=== PATIENT | male | born 1995 | race Caucasian/White ===

== ENCOUNTER 2020-02-03 05:52 | Emergency (ER) | payer SELFPAY ==
[2020-02-03 06:01] VITALS: BP 149/93; PULSE 78; RESP 16; TEMP 36.6; O2SAT 97; BMI 39.3
--- NOTE | 2020-02-03 06:23 | ED_ITS ---
HPI - Arrhythmia/Palpitations General: Chief Complaint: Arrhythmia/Palpitations Stated Complaint: irregular heartbeat Time Seen by Provider: 02/03/20 06:01 History of Present Illness: HPI narrative: 24-year-old coming in complaining of palpitations at around 1 AM this morning. He states he had a brief episode of slight chest discomfort went to bed and it resolved on its own. He denies any recent drug or alcohol use any energy drinks or any other kind of stimulants or decongestants. He did a little bit of chest discomfort which is very fleeting.Patient does not have any family history of coronary artery disease. He has no known history of any significant arrhythmias in the past. MD complaint: rapid heart beat and palpitations Onset (ago): hour(s) Time: 01:00 Duration: intermittent and now resolved Severity: mild Context: occurred during rest Arrhythmia history: other Associated symptoms: Reports no associated symptoms; Deny cough, diaphoresis, muscle cramps, nausea, pre-syncope, short of breath, syncope or vomiting Review of Systems Const: Denies: diaphoresis ENMT: Denies: throat pain, ear or mastoid pain, nasal discharge or nasal congestion Card: Reports: palpitations; Denies: lightheadedness, syncope, pre-syncope or dyspnea on exertion Resp: Denies: dyspnea, productive cough or non-productive cough GI: Denies: nausea or vomiting : Denies: flank pain, dysuria, urinary frequency or urinary urgency Musc: Denies: muscle cramps Skin/Breast: Denies: rash or pruritus PFSH ED PFSH: Medical History (Updated 02/03/20 @ 09:24 by Rodney Rodriguez DO) History of strabismus Hyperlipidemia SANDOVAL (nonalcoholic steatohepatitis) Sinus arrhythmia Surgical History (Updated 02/03/20 @ 07:25 by Rodney Rodriguez DO) H/O eye surgery Social History (Updated 02/03/20 @ 07:25 by Rodney Rodriguez DO) Smoking and tobacco status: never smoked Alcohol intake: never Physical Exam Const: COMMON NORMALS: no acute distress GENERAL APPEARANCE: cooperative and comfortable ORIENTATION/CONSCIOUSNESS: Yes awake, Yes oriented to person, Yes oriented to place and Yes oriented to time HENMT: COMMON NORMALS: normocephalic, atraumatic, hearing grossly normal bilaterally, external ears normal, EAC's normal, TM's normal bilaterally, Normal nasal mucous membranes and turbinates present, moist oral mucous membranes and oropharynx normal HEAD & SCALP: normocephalic and atraumatic NOSE: Normal nasal mucous membranes and turbinates present EXTERNAL EAR: Yes external ears normal EXTERNAL AUDITORY CANAL: EAC's normal TYMPANIC MEMBRANE: TM's normal bilaterally Eye: COMMON NORMALS: Equal, round and reactive pupils present, EOMs intact bilaterally, conjunctivae normal and no scleral icterus CONJUNCTIVA: Yes conjunctivae normal PUPIL: Yes Equal, round and reactive pupils present Neck/C-Spine: COMMON NORMALS: full ROM, no lymphadenopathy, supple and no JVD Lymph: LYMPHATIC: no lymphadenopathy noted and no lymphedema noted Resp: COMMON NORMALS: normal respiratory effort, No retractions, No use of accessory muscles and clear to auscultation bilaterally AUSCULTATION: clear to auscultation bilaterally Cardio: COMMON NORMALS: no JVD, regular rate, regular rhythm and No murmurs present (Cardio) RATE: regular rate RHYTHM: regular rhythm GI: COMMON NORMALS: Soft to palpation and No hepatosplenomegaly present AUSCULTATION: Yes normoactive bowel sounds PALPATION: Yes Soft to palpation, No Tenderness to palpation present (GI), No Guarding due to palpation present (GI) and Yes No hepatosplenomegaly present Extremity: COMMON NORMALS: normal to inspection, capillary refill normal, no clubbing, cyanosis or edema, no calf tenderness and no pedal edema Neuro: SENSORIUM/ORIENTATION: Yes oriented to person, Yes oriented to place and Yes oriented to time Skin: COMMON NORMALS: no rashes or lesions noted GENERAL SKIN EXAM: no rashes or lesions noted Course Vital Signs: Vital signs: Vital Signs Temperature 97.8 F 02/03/20 06:01 Pulse Rate 78 02/03/20 09:31 Respiratory Rate 16 02/03/20 09:31 Blood Pressure 140/85 02/03/20 09:31 Pulse Oximetry 98 02/03/20 09:31 MDM - Arrhythmia/Palpitations MDM Narrative: Medical decision making narrative: Reviewed reviewed findings with the patient on monitor will be done here in the emergency room notes any significant palpitations or abnormalities. We are going to discharge him home offered to set him up for a outpatient Holter monitor and referral to cardiology however is not from this area he is leaving in 2 days. Instead we reviewed things that may exacerbate this. Discussed most often these are PVCs and PACs but it should be further evaluated by a Holter monitor since he is leaving the area and returning home I strongly recommend that he follow-up with his primary care provider and they can get appropriate monitoring and referrals done. If need be he can refer to this ER visits and have records transferred today can see what evaluations were done here. He expressed understanding of this. If he has any worsening or changes symptoms return the emergency room immediately Lab Data: Labs: Lab Results 02/03/20 02/03/20 02/03/20 Range/Units 06:20 06:20 06:20 WBC 8.7 (4.0-10.0) 10^3/ uL RBC 5.29 (4.1-5.3) 10^6/u L Hgb 15.6 (11.7-16.6) g/dL Hct 46.7 (42.0-52.0) % MCV 88.3 (80-94) fL MCH 29.5 (28.0-34.0) pg MCHC 33.4 (30.0-36.0) g/dL RDW 12.3 (12.1-15.1) % Plt Count 260 (130-400) 10^3/c mm MPV 10.5 H (7.4-10.4) fL Neut % (Auto) 48.4 % Lymph % (Auto) 30.8 % [place] % (Auto) 7.1 % Eos % (Auto) 11.5 % Baso % (Auto) 1.1 % Neut # (Auto) 4.2 (1.8-7.7) 10^3/u L Lymph # (Auto) 2.7 (0.8-4.8) 10^3/u L [place] # (Auto) 0.6 (0.2-0.9) 10^3/u L Eos # (Auto) 1.0 H (0.0-0.8) 10^3/u L Baso # (Auto) 0.1 (0.0-0.1) 10^3/u L Nucleated RBC % (a uto) 0 % Nucleated RBCs # 0.0 /100WBC Sodium 141 (136-145) mmol/L Potassium 4.0 (3.5-5.1) mmol/L Chloride 105 (98-107) mmol/L Carbon Dioxide 24 (22-29) mmol/L Anion Gap 16.0 (5-19) BUN 11 (6-20) mg/dL Creatinine 1.0 (0.7-1.2) mg/dL GFR Calculation 91.8 (90-130) mL/min Glucose 103 (65-115) mg/dL Calculated Osmolal ity 288 (285-295) mOsm/k g Calcium 9.9 (8.5-10.5) mg/dL Total Bilirubin 0.4 (0.15-1.2) mg/dL AST 65 H (0-40) U/L ALT 97 H (0-41) U/L Alkaline Phosphata se 79 (40-130) IU/L Creatine Kinase 106 (39-308) U/L Troponin T Baselin e 6 (0-15) ng/L Troponin T 120 Min [place] (0-15) ng/L Delta Troponin T (0-10) ABS# Total Protein 6.9 (6.6-8.7) g/dL Albumin 4.7 (3.5-5.2) g/dL Globulin 2.2 (1.3-4.6) g/dL Urine Color (Yellow) Urine Appearance (CLEAR) Urine pH (5-7) Ur Specific Gravit y (1.005-1.030) Urine Protein (Negative) Urine Glucose (UA) (Normal) Urine Ketones (Negative) Urine Blood (Negative) Urine Nitrate (Negative) Urine Bilirubin (NEGATIVE) Urine Urobilinogen (Negative) mg/dL Ur Leukocyte Trang ase (Negative) 02/03/20 02/03/20 Range/Units 07:20 09:00 WBC (4.0-10.0) 10^3/ uL RBC (4.1-5.3) 10^6/u L Hgb (11.7-16.6) g/dL Hct (42.0-52.0) % MCV (80-94) fL MCH (28.0-34.0) pg MCHC (30.0-36.0) g/dL RDW (12.1-15.1) % Plt Count (130-400) 10^3/c mm MPV (7.4-10.4) fL Neut % (Auto) % Lymph % (Auto) % [place] % (Auto) % Eos % (Auto) % Baso % (Auto) % Neut # (Auto) (1.8-7.7) 10^3/u L Lymph # (Auto) (0.8-4.8) 10^3/u L [place] # (Auto) (0.2-0.9) 10^3/u L Eos # (Auto) (0.0-0.8) 10^3/u L Baso # (Auto) (0.0-0.1) 10^3/u L Nucleated RBC % (a uto) % Nucleated RBCs # /100WBC Sodium (136-145) mmol/L Potassium (3.5-5.1) mmol/L Chloride (98-107) mmol/L Carbon Dioxide (22-29) mmol/L Anion Gap (5-19) BUN (6-20) mg/dL Creatinine (0.7-1.2) mg/dL GFR Calculation (90-130) mL/min Glucose (65-115) mg/dL Calculated Osmolal ity (285-295) mOsm/k g Calcium (8.5-10.5) mg/dL Total Bilirubin (0.15-1.2) mg/dL AST (0-40) U/L ALT (0-41) U/L Alkaline Phosphata se (40-130) IU/L Creatine Kinase (39-308) U/L Troponin T Baselin e (0-15) ng/L Troponin T 120 Min [place] 6.00 (0-15) ng/L Delta Troponin T 0 (0-10) ABS# Total Protein (6.6-8.7) g/dL Albumin (3.5-5.2) g/dL Globulin (1.3-4.6) g/dL Urine Color Straw (Yellow) Urine Appearance Clear (CLEAR) Urine pH 7 (5-7) Ur Specific Gravit y 1.005 (1.005-1.030) Urine Protein Neg (Negative) Urine Glucose (UA) Norm (Normal) Urine Ketones Negative (Negative) Urine Blood Neg (Negative) Urine Nitrate Negative (Negative) Urine Bilirubin Neg (NEGATIVE) Urine Urobilinogen Norm (Negative) mg/dL Ur Leukocyte Trang ase Negative (Negative) Discharge Plan Discharge Patient Disposition: Home, Self-Care Clinical Impression: Palpitations Condition: Stable Prescriptions: No Action No Known Home Medications RF: 0 Discharge Orders: Discharge Order (Routine); Ordered 02/03/20 Ordered By: Rodney Rodriguez Discharge Diet: Usual diet Discharge Activity: Resume usual activity Activity Restrictions/Additional Instructions: Case management will call to arrange for a Holter monitor and referral to cardiology. Discharge Date/Time: 02/03/20 09:32 Coding Level of Care Code ED Programming Engineer for Chg Fwd Exam Comprehensive
--- NOTE | 2020-02-03 06:24 | XRR_ITS ---
PROCEDURE INFORMATION: Exam: XR Chest, 1 View Exam date and time: 02/03/2020 6:43 AM Age: 24 years old Clinical indication: Other: Irregular heartbeat and palpitations; Additional info: Dyspnea/cough TECHNIQUE: Imaging protocol: XR of the chest Views: Frontal portable upright view of the chest. COMPARISON: No relevant prior studies available. FINDINGS: Lungs: Mild left lateral basilar subsegmental atelectasis. The lungs are otherwise clear bilaterally. The pulmonary vasculature is normal. Pleural space: No pleural effusion. No pneumothorax. Heart/Mediastinum: The heart is normal in size and contour. Bones/joints: No acute chest wall abnormality identified. XR/XR chest 1V portable [id number] IMPRESSION: Mild left lateral basilar subsegmental atelectasis.
--- NOTE | 2020-02-03 06:24 | ECG_ITS ---
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 Measurements Intervals [place] Rate: 68 P: 33 NE: 165 QRS: 86 QRSD: 92 T: 2 QT: 342 QTc: 365 Interpretive Statements SINUS RHYTHM MODERATE ST DEPRESSION [0.05+ mV ST DEPRESSION] No previous ECG available for comparison Electronically Signed On 02-03-2020 16:53:04 CDT by Keshav Mir M.D. [id number]
[2020-02-03 06:36] LABS: Basophils # 0.1 10^3/uL (0.0-0.1); Basophils % 1.1 %; Eosinophils % 11.5 %; Hematocrit 46.7 % (42.0-52.0); Hemoglobin 15.6 g/dL (11.7-16.6); Lymphocytes # 2.7 10^3/uL (0.8-4.8); Lymphocytes % 30.8 %; Mean Corpuscular HGB Conc 33.4 g/dL (30.0-36.0); Mean Corpuscular Hemoglobin 29.5 pg (28.0-34.0); Mean Corpuscular Volume 88.3 fL (80-94); Mean Platelet Volume 10.5 fL (7.4-10.4); Monocytes # 0.6 10^3/uL (0.2-0.9); Monocytes % 7.1 %; Neutrophils # 4.2 10^3/uL (1.8-7.7); Neutrophils % 48.4 %; Nucleated Red Blood Cells % 0 %; Platelet Count 260 10^3/cmm (130-400); Red Blood Count 5.29 10^6/uL (4.1-5.3); Red Cell Distribution Width 12.3 % (12.1-15.1); White Blood Count 8.7 10^3/uL (4.0-10.0)
[2020-02-03] MEDS: sodium chloride 0.9% 1,000 ML 999 ML IV ×2 (06:40→06:52)
[2020-02-03 06:52] VITALS: BP 137/86; PULSE 83; RESP 18; O2SAT 97
[2020-02-03 06:53] LABS: Alanine Aminotransferase 97 U/L (0-41); Albumin Level 4.7 g/dL (3.5-5.2); Alkaline Phosphatase 79 IU/L (40-130); Aspartate Amino Transferase 65 U/L (0-40); Blood Urea Nitrogen 11 mg/dL (6-20); Calcium 9.9 mg/dL (8.5-10.5); Carbon Dioxide 24 mmol/L (22-29); Chloride 105 mmol/L (98-107); Creatine Phosphokinase 106 U/L (39-308); Creatinine Clr Calc Pharmacy 159.7848; Globulin 2.2 g/dL (1.3-4.6); Glomerular Filtration Rate 91.8 mL/min (90-130); Glucose 103 mg/dL (65-115); Osmolality Calculated 288 mOsm/kg (285-295); Sodium 141 mmol/L (136-145); Total Bilirubin 0.4 mg/dL (0.15-1.2); Total Protein 6.9 g/dL (6.6-8.7)
[2020-02-03 06:54] LABS: Troponin(5th) Baseline 6 ng/L (0-15)
[2020-02-03 06:56] VITALS: BP 136/80; BP 145/108; BP 149/88; PULSE 74; PULSE 79
[2020-02-03 07:53] LABS: Add Urine Microscopic? NO; Bilirubin Urine Neg (NEGATIVE); Blood Urine Neg (Negative); Glucose Urine UA Norm (Normal); Ketones Urine Negative (Negative); Leukocyte Esterase Urine Negative (Negative); Nitrate Urine Negative (Negative); Protein Urine Neg (Negative); Specific Gravity, Urine 1.005 (1.005-1.030); Urine Appearance Clear (CLEAR); Urine Color Straw (Yellow); Urobilinogen Urine Norm (Negative); pH Urine 7 (5-7)
--- NOTE | 2020-02-03 08:24 | ECG_ITS ---
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 Measurements Intervals [place] Rate: 80 P: 67 [place]: 154 QRS: 79 QRSD: 92 T: 59 QT: 361 QTc: 417 Interpretive Statements SINUS RHYTHM No previous ECG available for comparison Electronically Signed On 02-03-2020 9:41:52 CDT by Keshav Mir M.D. [id number]
[2020-02-03 09:31] VITALS: BP 140/85; PULSE 78; RESP 16; O2SAT 98
[2020-02-03 10:10] LABS: Troponin 5 2HR Delta 0 ABS# (0-10)
--- NOTE | 2020-02-03 14:55 | DCPLANNER ---
compliance program manager had message to schedule a follow up appointment for patient with [facility] for a 24 hour holter monitor. compliance program manager called patient to confirm who patient sees for primary care. compliance program manager left a voicemail for patient to return cyanide case hardener phone call.
--- NOTE | 2020-02-04 09:23 | DCPLANNER ---
manager of selection and assessment called patient at phone number a voicemail was left for patient to return skilled nursing case manager phone call.
== END 2020-02-03 09:32 | disposition home or self-care (01) ==
PROVIDERS: Emergency Provider Family Medicine
DX: R00.2 Palpitations (principal); E78.5 Hyperlipidemia, unspecified
CPT/HCPCS: 12345; 71045; 80053; 81003; 82550; 84484; 85025; 93005; 96360; 96361; 99283; 99284; J7030

== ENCOUNTER 2024-12-05 10:51 | Day surgery (SDC) | payer BC, SELFPAY ==
[2024-12-05] VITALS (12 sets, daily range): BP systolic 118–158; BP diastolic 63–133; PULSE 82–106; RESP 16–20; TEMP 36.1–36.5; O2SAT 92–100
--- NOTE | 2024-12-05 11:02 | XR_ITS ---
WS: [id number] Portable AP upright chest, 12/05/2024 Clinical Data: foot bolus impaction Comparison: Portable chest, 02/03/2020 Findings: No nodules, masses or effusions are seen. The heart is normal. The pulmonary vascularity is not increased. No pneumonia or pneumothorax is seen. XR/XR chest 1V portable [id number] Impression: Negative chest.
--- NOTE | 2024-12-05 11:03 | ECG_ITS ---
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 Measurements Intervals [place] Rate: 85 P: 30 SD: 159 QRS: 14 QRSD: 102 T: 29 QT: 337 QTc: 401 Interpretive Statements SINUS RHYTHM WITH SINUS ARRHYTHMIA NONSPECIFIC ST ELEVATION [0.05+ mV ST ELEVATION] No previous ECG available for comparison Electronically Signed On 12-09-2024 09:28:46 CDT by Bob Booth M.D. [id number]
--- NOTE | 2024-12-05 11:04 | W.ED.ABDPA2 ---
HPI - Abdominal Pain General: Chief Complaint: Airway/Esophagus Foreign Body Stated Complaint: food stuck in throat Time Seen by Provider: 12/05/24 10:55 Source: patient Mode of arrival: ambulatory Limitations: no limitations History of Present Illness: This patient made his way to the emergency department today because of a food impaction. He states he was eating deer meat and states that he was consuming what he considers a large piece of meat and it seems to have lodged itself in his mid esophagus as best he can tell. He states she has had similar occurrences in the past but is never gone to the emergency department for occurrences they would usually pass with time. He has had an endoscopy done to evaluate the issue previously but not emergently. He states he attempted to drink water after this occurred and he immediately threw it up and is having difficulty swallowing saliva and normal secretions. He denies chest pain per se. But he does have a sense of fullness in the mid esophageal region. He has never had abdominal surgeries. He does have a what he states is a history of arrhythmia and is followed by cardiology. He does mention that his family does have a history of Brugada syndrome. He has never had any previous limitations to his extracurricular activities while growing up. He has had no episodes of syncope etc. He is currently visiting here from [place]. Associated Symptoms: Reports vomiting; Denies chills, fever(s), hematemesis, nausea and syncope Related Data Home Medications ?Medication ?Instructions ?Recorded ?Confirmed losartan 100 mg tablet 100 mg PO DAILY 12/05/24 12/05/24 magnesium aspart,citrate,oxide 400 mg PO DAILY 12/05/24 12/05/24 Allergies Allergy/AdvReac Type Severity Reaction Status Date / Time azithromycin Allergy Unknown Verified 12/05/24 10:58 Penicillins Allergy ALGY-Hives Verified 02/03/20 06:09 Review of Systems Const: Denies: fever(s) or chills ENMT: Denies: throat pain Card: Denies: chest pain, palpitations, syncope or pre-syncope Resp: Denies: dyspnea, productive cough or non-productive cough GI: Reports: vomiting; Denies: abdominal pain, nausea or hematemesis : Denies: flank pain or difficulty urinating Musc: Denies: neck pain Psych: Denies: anxiety PFS ED PFSH: Medical History History of strabismus Hyperlipidemia SANDOVAL (nonalcoholic steatohepatitis) Sinus arrhythmia Surgical History H/O eye surgery Social History Smoking and tobacco/nicotine status: never used tobacco/nicotine Alcohol intake: never Physical Exam Narrative: EXAM NARRATIVE: Patient's alert makes good eye contact and is extremely accurate and precise in his answers. Const: COMMON NORMALS: no acute distress, patient oriented x3 and alert GENERAL APPEARANCE: cooperative and comfortable NUTRITIONAL APPEARANCE: obese HENMT: COMMON NORMALS: Normal external nose present, Normal nasal mucous membranes and turbinates present, moist oral mucous membranes and oropharynx normal FACE & SINUS: normal facial exam NOSE: Normal external nose present and Normal nasal mucous membranes and turbinates present Eye: COMMON NORMALS: Equal, round and reactive pupils present and EOMs intact bilaterally PUPIL: Yes Equal, round and reactive pupils present Neck/C-Spine: COMMON NORMALS: full ROM, no lymphadenopathy and supple Chest: COMMONS NORMALS: normal inspection of the chest and normal palpation of entire chest wall Resp: COMMON NORMALS: normal respiratory effort, No retractions, No use of accessory muscles and clear to auscultation bilaterally EFFORT & INSPECTION: Yes able to speak in complete sentences AUSCULTATION: clear to auscultation bilaterally Cardio: COMMON NORMALS: regular rate, regular rhythm, No murmurs present (Cardio) and Peripheral pulses 2+ throughout RATE: regular rate RHYTHM: regular rhythm PERIPHERAL PULSES: Peripheral pulses 2+ throughout GI: COMMON NORMALS: Soft to palpation, non-tender and no masses INSPECTION: Yes normal to inspection and Yes central obesity PALPATION: Yes Soft to palpation Back/Pelvis: COMMON NORMALS: thoracic and lumbar spine normal to inspection and no thoracic nor lumbar tenderness Extremity: COMMON NORMALS: normal to inspection, full ROM and capillary refill normal Neuro: COMMON NORMALS: patient oriented x3, moves all extremities, no focal motor deficits and no sensory deficits noted SENSORIUM/ORIENTATION: Yes alert Psych: COMMON NORMALS: mental status grossly normal Skin: COMMON NORMALS: no rashes or lesions noted, no wounds and turgor normal GENERAL SKIN EXAM: no rashes or lesions noted and turgor normal Course Reevaluation(s): Reevaluation #1: Patient has received glucagon and reevaluated. Patient is still very uncomfortable still a sensation of pressure and fullness in his mid chest. And still unable to drink fluids. Will go ahead and consult general surgery for potential endoscopy. Time: 11:53 Reevaluation #2: Patient taken to the GI suite for endoscopy Time: 12:42 Consultations: Consultation #1: Discussed with Dr. Huffman general surgery on-call. He will discuss with anesthesia regarding scheduling and plan for endoscopy. Time: 12:09 Vital Signs: Vital signs: Vital Signs Temperature 97.7 F 12/05/24 10:56 Pulse Rate 92 12/05/24 12:29 Respiratory Rate 20 H 12/05/24 10:56 Blood Pressure 139/90 12/05/24 12:29 Pulse Oximetry 98 12/05/24 12:29 Oxygen Delivery Me thod Room Air 12/05/24 12:29 MDM - Abdominal Pain Medical Decision Making Patient presented as noted in HPI. Consistent with what clinically is a esophageal food bolus impaction. History of similar occurrences in the past. Plan at this point he is clinically stable. He is able to phonate well and has had no difficulty with recurrent emesis or concerns about impending Bohac Boerhaave syndrome etc. Will go ahead and obtain IV access monitor him and plan on IV glucagon to see in reevaluation for spontaneous resolution which if unsuccessful then we will plan on contacting surgery for endoscopy. Lab Data I reviewed the patient's lab results. 12/05/24 11:16 Labs/Radiology: Radiology Impressions Chest X-Ray 12/05/24 11:02 Impression: Negative chest. Laboratory Results Sodium 137 mmol/L (136-145) 12/05/24 11:16 Potassium 3.7 mmol/L (3.5-5.1) 12/05/24 11:16 Chloride 104 mmol/L (98-107) 12/05/24 11:16 Carbon Dioxide 23 mmol/L (22-29) 12/05/24 11:16 Anion Gap 13.7 (5-19) 12/05/24 11:16 BUN 13 mg/dL (6-20) 12/05/24 11:16 Creatinine 0.8 mg/dL (0.7-1.2) 12/05/24 11:16 GFR Calculation 114.3 mL/min (90-130) 12/05/24 11:16 Glucose 117 mg/dL (65-115) H 12/05/24 11:16 Calculated Osmolality 285 mOsm/kg (285-295) 12/05/24 11:16 Calcium 8.7 mg/dL (8.5-10.5) 12/05/24 11:16 Magnesium 1.9 mg/dL (1.7-2.3) 12/05/24 11:16 All radiology interpretation(s) finalized by discharge EKG Data EKG 1: I personally reviewed and interpreted this EKG as follows: Interpretation: Contemporaneous review of resting EKG reveals ventricular rate of 85 bpm. Normal [place] interval, normal QRS duration, normal corrected QT interval. Normal axis. No acute ST-T wave changes noted. No typical V1 V2 changes consistent with or suggestive of Brugada syndrome at this time. Discharge Plan Discharge Patient Disposition: Placed in Observation Clinical Impression: Esophageal obstruction due to food impaction Coding Level of Care Code ED Concrete Pile Driver Operator for Noel Russo
[2024-12-05] MEDS: glucagon 1 mg/mL KIT 1 mL IVP (11:16)
[2024-12-05 11:42] LABS: Anion Gap 13.7 (5-19); Blood Urea Nitrogen 13 mg/dL (6-20); Calcium 8.7 mg/dL (8.5-10.5); Carbon Dioxide 23 mmol/L (22-29); Chloride 104 mmol/L (98-107); Glomerular Filtration Rate 114.3 mL/min (90-130); Glucose 117 mg/dL (65-115); Magnesium 1.9 mg/dL (1.7-2.3); Osmolality Calculated 285 mOsm/kg (285-295); Potassium 3.7 mmol/L (3.5-5.1); Sodium 137 mmol/L (136-145)
--- NOTE | 2024-12-05 12:51 | PM.CONSULT ---
Providers/Reason For Consult Consulting Physician/Specialty*: vibha meng ER provider Reason for Consult*: esophageal impaction Requesting Physician: Vibha Meng ER provider Attending Physician: Papito Pagan MD History of Present Illness History of Present Illness Lola Carrion is a 29 year old male visiting from [place] has had sensation food getting stuck in esophagus and has not needed upper endoscopic extraction until now. Tried eating deer meat this morning and feels its stuck in mid esophagus and can't keep anything down now. Given glucagon and did not help. No coughing or aspiration symptoms and CXR shows no acute pneumonia Review of Systems Narrative: Constitutional: denies rigors, singnificant weight gain, increased appetite HEENT: denies chronic cough, blurry vision, excessive tearing, eye pain, flashing lights, odynophagia, painful mastication, change in voice, change in taste, chronic sore throat, hypersalivation Heart: denies racing heart, palpitations, othropnea, PND Lungs: denies hemoptysis, pain with deep inspiration, chronic bronchitis GI: denies hematemesis, hematochezia, dysphagia, tenesmus : denies polyuria, hematuria, painful micturation Musculoskeletal: denies hemarthrosis, Muscle wasting, change in amubation Neuro: denies new onset syncope, dysesthesia, dysequilibrium, ptosis eyelid or face SKin: denies new onset hyperalgia, new rash new cyanosis Endocrine: denies new polyuria, polydipsia, polyphagia, heat intolerance, excessive energy Hem/Onc: denies new petechiae, swollen glands, new excessive epstaxis Psych: denies racing thought Medications/Allergies Home Medications ?Medication ?Instructions ?Recorded ?Confirmed ?Last Taken ?Type losartan 100 mg tablet 100 mg PO DAILY 12/05/24 12/05/24 12/05/24 History magnesium aspart,citrate,oxide 400 mg PO DAILY 12/05/24 12/05/24 12/04/24 History Allergies Allergy/AdvReac Type Severity Reaction Status Date / Time azithromycin Allergy Unknown Verified 12/05/24 10:58 Penicillins Allergy ALGY-Hives Verified 02/03/20 06:09 PFSH Acute PFSH: Medical History History of strabismus Hyperlipidemia SANDOVAL (nonalcoholic steatohepatitis) Sinus arrhythmia Surgical History H/O eye surgery Social History Smoking and tobacco/nicotine status: never used tobacco/nicotine Alcohol intake: never Vitals/I&O/Wt Last Vital Signs Temp 97.7 F 12/05/24 10:56 Pulse 92 12/05/24 12:29 Resp 20 H 12/05/24 10:56 BP 139/90 12/05/24 12:29 Pulse Ox 98 12/05/24 12:29 O2 Del Method Room Air 12/05/24 12:29 Physical Exam Narrative: Patient is a well developed well nourished and in NAD and is afebrile with vitals stable and is answering questions appropriately with a normal affect and is alert and oriented x3 HEENT: normocephalic with normal external ears and nonicteric, oral mucosa moist and dentition normal for age, trachea midline with no large masses visualized Heart: RRR, no gallops murmurs or rubs, normal PMI with no thrills Lungs: normal excursions, no loud audible wheezing, no subcutaneous emphysema Abdomen: nondistended, no gross hepatosplenomegaly, no masses, no rigidity or rebound, no loud borborygmi Neuro: nonfocal, ARDON, grossly normal sensation Musculoskeletal: good muscle tone, no fasciculations, normal gait Skin: pink warm and dry with no rashes or ecchymosis Vascular: good radial pulses, no ulceration, less than 2 second capillary refill in hand : deferred Data 12/05/24 11:16 A&P Assessment and plan (1) Esophageal obstruction due to food impaction: Plan Take to Endo for EGD and extraction of meat and possible biopsy and dilation. Risks include bleeding, infection, cardiopulmonary problems, missed lesion, more procedures, perforation, aspiration. PDMP PDMP Reviewed: Not Reviewed Coding Level of Care Code 06854 Diagnoses Esophageal obstruction due to food impaction T18.128A; [id number]
--- NOTE | 2024-12-05 12:54 | SUR.PREOP ---
Pt to GI lab via stretcher. Pt wedding band and phone given to pt . VSS. Anesthesia at bedside.
[2024-12-05] MEDS: sodium chloride 0.9% 1,000 ML 15 ML IV ×2 (13:00→14:35)
== END 2024-12-05 18:20 | disposition home or self-care (01) ==
LOC: ER 12:35 → OR 12:41 → GILAB 13:36
PROVIDERS: Emergency Provider Emergency Medicine; Visit Provider Specialist
PROC: 0DJ08ZZ Inspection of Upper Intestinal Tract, Via Natural or Artificial Opening Endoscopic (ICD-10-PCS; principal; 2024-12-05 13:00)
DX: T18.128A Food in esophagus causing other injury, initial encounter (principal); E78.5 Hyperlipidemia, unspecified; Z79.899 Other long term (current) drug therapy; Z88.1 Allergy status to other antibiotic agents; Z88.0 Allergy status to penicillin; W44.F3XA Food entering into or through a natural orifice, initial encounter
CPT/HCPCS: 36415; 43247; 71045; 80048; 83735; 93005; 96374; 99285; J0330; J1100; J1200; J1610; J2405; J2704; J3010; J3490; J7030; J9999